=== PATIENT | female | born 1980 | race American Indian/Alaskan Native ===

== ENCOUNTER 2017-05-07 01:12 | Emergency (ER) | payer SELFPAY ==
[2017-05-07] MEDS ORDERED: MOTRIN PO ONE (01:47)
--- NOTE | 2017-05-07 07:42 | Emergency Department Report ---
Abscess Boil HPI - HPI Chief Complaint: Skin/Abscess/Foreign Body Stated Complaint: VAGINAL ABSCESS Time Seen by Provider: 05/07/17 07:19 Severity: Mild History: Yes Pain, Yes Purulent Drainage, No Fever, No Numbness, No Foreign Body , No Previous History, No Insect Bite HPI: 36-year-old female past medical history none presents with complaint of lump in left inguinal region which she says is become progressively more swollen and painful over the last 3 days. His fevers or chills denies nausea or vomiting. States it is in her left inguinal region Home Medications: Previous Rx's Medication Instructions Recorded Last Taken Type Ibuprofen [Motrin] 600 mg PO Q8H PRN #25 tablet 05/07/17 Unknown Rx Sulfamethoxazole/Trimethoprim 1 each PO BID #14 tablet 05/07/17 Unknown Rx [Bactrim DS TAB] Allergies/Adverse Reactions: Allergies Allergy/AdvReac Type Severity Reaction Status Date / Time No Known Allergies Allergy Unverified 05/07/17 01:47 ED Review of Systems ROS: Stated complaint: VAGINAL ABSCESS Other details as noted in HPI Constitutional: denies: chills, fever Eyes: denies: eye pain, eye discharge, vision change ENT: denies: ear pain, throat pain Respiratory: denies: cough, shortness of breath, wheezing Cardiovascular: denies: chest pain, palpitations Endocrine: no symptoms reported Gastrointestinal: denies: abdominal pain, nausea, diarrhea Genitourinary: denies: urgency, dysuria, discharge Musculoskeletal: denies: back pain, joint swelling, arthralgia Skin: as per HPI. denies: rash, lesions Neurological: denies: headache, weakness, paresthesias Psychiatric: denies: anxiety, depression Hematological/Lymphatic: denies: easy bleeding, easy bruising ED Past Medical Hx - Past Medical History Previous Medical History?: No - Surgical History Past Surgical History?: No - Social History Smoking Status: Never Smoker Substance Use Type: None - Medications Home Medications: Home Medications Medication Instructions Recorded Confirmed Last Taken Type Ibuprofen [Motrin] 600 mg PO Q8H PRN #25 tablet 05/07/17 Unknown Rx Sulfamethoxazole/Trimethoprim 1 each PO BID #14 tablet 05/07/17 Unknown Rx [Bactrim DS TAB] ED Abscess Boil Physical Exam - Exam General: Vital signs noted. No distress. Alert and acting appropriately. Front/Back of Body, Lg (Color): 1 - 2-3cm abscess w/ surrounding cellulitis Size: 3 cm Exam: Yes Tenderness, Yes Fluctuance, Yes Surrounding Cellulites/Erythema, No Lymphangitis, No Crepitation, No Heart Murmur, No Normal Neurologic Exam, No Normal Circulation Exam: Small 2-3 cm fluctuant site adjacent to left inguinal region. Tiny amount of fluctuance minimal surrounding cellulitis. Tender to palpation. I & D Note - I & D Note I & D Note: Area infiltrated with lidocaine 1% without epinephrine. 2-3 mL of lidocaine placed overlying abscess site. Good local anesthesia achieved. Single vertical stab incision made with 11 size scalpel, tiny amount of purulent drainage. Significant reduction of abscess size. Patient stated that she felt immediate relief after drainage. Minimal bleeding, covered with gauze and tape afterward ED Course Vital Signs 05/07/17 01:18 Temperature 97.9 F Pulse Rate 82 Respiratory 18 Rate Blood Pressure 120/80 O2 Sat by Pulse 100 Oximetry Critical care attestation.: If time is entered above; I have spent that time in minutes in the direct care of this critically ill patient, excluding procedure time. ED Medical Decision Making - Medical Decision Making A/P: Simple abscess 1-sized and drained, tiny amount of purulent drainage 2-place patient on Bactrim empirically 3-Motrin when necessary for pain 4-advised patient to return to the ED if abscess re-accumulates or if area of tenderness spreads beyond current borders patient stated she understood ED Disposition Clinical Impression: Abscess Disposition: DC-01 TO HOME OR SELFCARE Is pt being admited?: No Does the pt Need Aspirin: No Condition: Stable Instructions: Abscess Incision and Drainage (ED), Abscess (ED) Prescriptions: Ibuprofen [Motrin] 600 mg PO Q8H PRN #25 tablet PRN Reason: Pain Sulfamethoxazole/Trimethoprim [Bactrim DS TAB] 1 each PO BID #14 tablet Referrals: [facility] [place] [Outside] - 3-5 Days [facility] [Outside] - 3-5 Days Forms: Work/School Release Form(ED) Time of Disposition: 08:16
[2017-05-07 08:27] VITALS: BP 115/82
== END 2017-05-07 08:26 | disposition home or self-care (01) ==
LOC: ED 01:12
DX: N76.0 Acute vaginitis (principal)
CPT/HCPCS: 99282